=== PATIENT | male | born 1955 | race Caucasian/White ===

== ENCOUNTER 2023-10-10 15:11 | Observation (INO) | payer OTHER ==
[2023-10-10 15:34] VITALS: BMI 39.0
[2023-10-10] MEDS: Sodium Chloride 0.9% 1,000 ML IV SCH (16:42)
[2023-10-10 17:26] LABS: #Basophils 0.1 10x3/uL (0.0-0.2); #Eosinphils 0.2 10x3/uL (0.0-0.5); #Neutrophils 5.2 10x3/uL (1.5-8.4); %Basophils 1.2 % (0.0-2.0); %Eosinophils 2.2 % (0.0-6.0); %Lymphocytes 22.1 % (18.0-47.0); %Monocytes 11.6 % (0.0-10.0); %Neutrophils 62.4 % (40.0-75.0); Hematocrit 44.8 % (38.8-50.0); Hemoglobin 14.4 g/dL (13.5-17.5); Mean Corpuscular HGB CONC 32.1 g/dL (32.0-36.0); Mean Corpuscular Hemoglobin 29.5 pg (27.0-33.0); Mean Corpuscular Volume 91.8 fl (81.2-95.1); Mean Platelet Volume 10.6 fl (7.4-10.4); Platelet Count 206 10x3/uL (150-450); RBC Distribution Width 12.6 % (11.5-14.5); Red Blood Cell (RBC) Count 4.88 10x6/uL (4.32-5.72); White Blood Cell (WBC) Count 8.3 10x3/uL (3.5-10.5)
[2023-10-10 17:40] LABS: Anion Gap 15 mmol/L (10-20); BUN (Urea Nitrogen) 21 mg/dL (8.4-25.7); Calc. Creatinine Clearance 147 mL/min (70-130); Calcium 9.4 mg/dL (7.8-10.44); Carbon Dioxide 24 mmol/L (23-31); Chloride 105 mmol/L (98-107); Estimated GFR 84; Glucose 80 mg/dL (80-115); INR-International Normal Ratio 1.1; PTT 26.9 sec (22.0-33.0); Prothrombin Time 12.3 sec (9.5-12.1); Sodium 139 mmol/L (136-145)
[2023-10-10 17:41] LABS: Potassium 4.5 mmol/L (3.5-5.1)
[2023-10-10] MEDS ORDERED: Atorvastatin Calcium 40 MG TAB PO SCH (21:15)
[2023-10-10] MEDS ORDERED: Fenofibrate Nanocrystallized 145 MG TAB PO SCH (21:15)
[2023-10-10] MEDS ORDERED: Ezetimibe 10 MG TAB PO SCH (21:15)
[2023-10-10] MEDS ORDERED: Metoprolol Tartrate 50 MG TAB PO SCH (21:15)
[2023-10-11] MEDS: Sodium Chloride 0.9% 1,000 ML IV SCH (01:42)
[2023-10-11 03:55] LABS: #Basophils 0.1 10x3/uL (0.0-0.2); #Eosinphils 0.2 10x3/uL (0.0-0.5); #Monocytes 0.9 10x3/uL (0.0-1.1); #Neutrophils 3.4 10x3/uL (1.5-8.4); %Basophils 1.2 % (0.0-2.0); %Eosinophils 3.3 % (0.0-6.0); %Lymphocytes 24.9 % (18.0-47.0); %Monocytes 14.5 % (0.0-10.0); %Neutrophils 55.6 % (40.0-75.0); Hematocrit 38.4 % (38.8-50.0); Hemoglobin 12.6 g/dL (13.5-17.5); Mean Corpuscular HGB CONC 32.8 g/dL (32.0-36.0); Mean Corpuscular Hemoglobin 30.1 pg (27.0-33.0); Mean Corpuscular Volume 91.9 fl (81.2-95.1); Mean Platelet Volume 11.1 fl (7.4-10.4); Platelet Count 168 10x3/uL (150-450); RBC Distribution Width 12.7 % (11.5-14.5); Red Blood Cell (RBC) Count 4.18 10x6/uL (4.32-5.72); White Blood Cell (WBC) Count 6.1 10x3/uL (3.5-10.5)
[2023-10-11 04:03] LABS: Anion Gap 12 mmol/L (10-20); BUN (Urea Nitrogen) 22 mg/dL (8.4-25.7); Calc. Creatinine Clearance 147 mL/min (70-130); Calcium 8.7 mg/dL (7.8-10.44); Carbon Dioxide 24 mmol/L (23-31); Chloride 106 mmol/L (98-107); Estimated GFR 84; Glucose 154 mg/dL (80-115); Potassium 4.2 mmol/L (3.5-5.1); Sodium 138 mmol/L (136-145)
[2023-10-11 04:24] LABS: INR-International Normal Ratio 1.2; PTT 26.8 sec (22.0-33.0); Prothrombin Time 12.7 sec (9.5-12.1)
[2023-10-11] MEDS ORDERED: Aspirin Chewable 81 MG TAB PO SCH (06:00)
[2023-10-11] MEDS ORDERED: Valsartan 80 MG TAB PO SCH (06:00)
[2023-10-11] MEDS ORDERED: Nitroglycerin 50 MG/250 ML BOT 0 ML ONE (07:57)
[2023-10-11] MEDS ORDERED: Lidocaine 1% (PF) 30 ML VIAL ONE (07:57)
[2023-10-11] MEDS ORDERED: Adenosine 6 mg (2 mL) VIAL ONE (07:58)
[2023-10-11] MEDS ORDERED: Heparin 10,000 UNITS/ 10 ML VIAL ONE ×2 (07:58→09:58)
[2023-10-11] MEDS ORDERED: Atropine Sulfate 1 mg/1 ml Vial ONE (07:58)
[2023-10-11] MEDS ORDERED: fentaNYL 50 mcg/mL 1 mL Vial ONE (09:05)
[2023-10-11] MEDS ORDERED: Midazolam HCl 2 mg/2 ml Vial ONE (09:05)
[2023-10-11] MEDS ORDERED: TICAGRELOR 90 MG TABLET ONE (09:47)
[2023-10-11] MEDS ORDERED: Protamine Sulfate 50 MG/5 ML VIAL ONE (10:43)
[2023-10-11] MEDS ORDERED: Sodium Chloride 0.9% 1,000 ML IV SCH (11:45)
[2023-10-11] MEDS ORDERED: Carvedilol 12.5 MG TAB PO SCH ×2 (12:15→17:00)
[2023-10-11] MEDS ORDERED: Iopamidol 300 61% 100 ML VIAL FS ONE (12:29)
[2023-10-11 12:44] VITALS: BP 158/71; TEMP 97.5
[2023-10-11] MEDS ORDERED: TICAGRELOR 90 MG TABLET PO SCH (21:00)
[2023-10-11] MEDS ORDERED: Ezetimibe 10 MG TAB PO SCH (21:00)
[2023-10-11] MEDS ORDERED: Atorvastatin Calcium 40 MG TAB PO SCH (21:00)
[2023-10-12] MEDS ORDERED: Fenofibrate Nanocrystallized 145 MG TAB PO SCH (09:00)
[2023-10-12] MEDS ORDERED: Pioglitazone HCl 15 MG TAB PO SCH (09:00)
[2023-10-12] MEDS ORDERED: Aspirin Chewable 81 MG TAB PO SCH (09:00)
[2023-10-12] MEDS ORDERED: Valsartan 80 MG TAB PO SCH (09:00)
== END 2023-10-11 14:34 | disposition home or self-care (01) ==
LOC: INTOOBSV 15:11 → CSHTELE 15:11
PROVIDERS: ADMIT Internal Medicine Cardiovascular Disease; ATTEND Internal Medicine Cardiovascular Disease
PROC: 4A023N8 Measurement of Cardiac Sampling and Pressure, Bilateral, Percutaneous Approach (ICD-10-PCS; principal; 2023-10-11)
PROC: B201YZZ Plain Radiography of Multiple Coronary Arteries using Other Contrast (ICD-10-PCS; 2023-10-11)
DX: I25.110 Atherosclerotic heart disease of native coronary artery with unstable angina pectoris (principal); E78.5 Hyperlipidemia, unspecified; E11.9 Type 2 diabetes mellitus without complications; I10 Essential (primary) hypertension; N40.0 Benign prostatic hyperplasia without lower urinary tract symptoms; K21.9 Gastro-esophageal reflux disease without esophagitis; I24.9 Acute ischemic heart disease, unspecified; I25.2 Old myocardial infarction; Z88.8 Allergy status to other drugs, medicaments and biological substances; Z79.899 Other long term (current) drug therapy; Z98.890 Other specified postprocedural states
CPT/HCPCS: 71046; 80048 ×2; 82962 ×2; 85025 ×2; 85347 ×2; 85610 ×2; 85730 ×2; 92978; 93005 ×2; 93459; C1725; C1753; C1760 ×2; C1769; C1874; C1887; C9604; J3010; 36415; 36416; 92937; 93010; 99152; 99153; J0153; J0461; J1644; J2001; J2250; J2720; J7050; Q9967